=== PATIENT | male | born 1950 | race Caucasian/White ===

== ENCOUNTER → 2017-12-18 | Outpatient (CLI) | payer MEDICARE ==
[~2017-12-18] MED LIST: AMIO200T42 PO; ATOR20TA9 PO; CLON0.1T PO; DOXA4TAB3 PO; LISI40TA PO; METO25TA91 PO
[2017-12-18 12:02] LABS: INTERNATIONAL NORMALIZED RATIO 1.09 (0.93-1.1); PROTHROMBIN TIME 11.2 Seconds (9.6-11.5)
[2017-12-18 12:06] LABS: ALBUMIN 3.5 g/dL (3.4-5.0); ANION GAP 7 mmol/L (5-15); BASOPHILS # (AUTO) 0.03 x10^3/uL (0-0.1); BASOPHILS % (AUTO) 0 % (0-1); CHLORIDE 112 mmol/L (98-107); EOSINOPHILS # (AUTO) 0.24 x10^3/uL (0-0.4); EOSINOPHILS % (AUTO) 3 % (1-7); LYMPHOCYTES # (AUTO) 1.06 x10^3/uL (1-3.4); LYMPHOCYTES % (AUTO) 11 % (22-44); MD NO; MEAN CORPUSCULAR HEMOGLOBIN 29.7 pg (27.5-34.5); MEAN CORPUSCULAR HGB CONC 33.2 g/dL (33.2-36.2); MEAN CORPUSCULAR VOLUME 89.7 fL (81-97); MEAN PLATELET VOLUME 8.4 fL (7.4-10.4); MONOCYTES # (AUTO) 0.68 x10^3/uL (0.2-0.8); MONOCYTES % (AUTO) 7 % (2-9); NEUTROPHILS # (AUTO) 7.37 x10^3/uL (1.8-6.8); NEUTROPHILS % (AUTO) 79 % (42-75); PLATELET COUNT 203 x10^3/uL (130-400); RED BLOOD COUNT 4.92 x10^6/uL (4.38-5.82); RED CELL DISTRIBUTION WIDTH 14.1 % (9.4-14.8)
[2017-12-18 12:11] LABS: ALANINE AMINOTRANSFERASE 24 U/L (12-78); ALKALINE PHOSPHATASE 65 U/L (45-117); BILIRUBIN,TOTAL 1.4 mg/dL (0.2-1.0); CALCIUM 10.2 mg/dL (8.5-10.1); CREATININE 1.26 mg/dL (0.7-1.3); TOTAL PROTEIN 6.7 g/dL (6.4-8.2)
== END | disposition home or self-care (01) ==
LOC: STAR 10:59
PROVIDERS: ATTEND Internal Medicine Cardiovascular Disease
DX: Z01.818 Encounter for other preprocedural examination (principal)
CPT/HCPCS: 36415; 71046; 80053; 85025; 85610; 85730

== ENCOUNTER 2017-12-31 08:43 | Observation (INO) | payer MEDICARE ==
[2017-12-18 11:44] VITALS: BP 186/105
[~2017-12-31] VITALS: Ht 175.3 cm; Wt 110.1 kg
[2017-12-31] MEDS ORDERED: SODIUM CHLORIDE 0.9% 1,000 ML IV SCH (09:02)
[2017-12-31] MEDS ORDERED: SUCCINYLCHOLINE 20 MG/ML, 10ML ONE (10:27)
[2017-12-31] MEDS ORDERED: PROPOFOL 10 MG/ML, 20ML ONE (10:27)
[2017-12-31] MEDS ORDERED: ROCURONIUM 10 MG/ML,10ML ONE (10:27)
[2017-12-31] MEDS ORDERED: DEXAMETHASONE 4 MG/ML, 1ML ONE (10:27)
[2017-12-31] MEDS ORDERED: FENTANYL PF 250 MCG/5ML ONE (11:40)
[2017-12-31] MEDS ORDERED: MIDAZOLAM 1 MG/ML, 2ML ONE (11:40)
[2017-12-31] MEDS ORDERED: LIDOCAINE/PF 1%, 30ML ONE (11:57)
[2017-12-31] MEDS ORDERED: PROTAMINE SULFATE 10 MG/ML, 5ML ONE (11:57)
[2017-12-31] MEDS ORDERED: HEPARIN 1,000 UNITS/ML, 10ML ONE (11:58)
[2017-12-31] MEDS ORDERED: ACETAMINOPHEN 325 MG TABLET PO PRN ×2 (14:00→14:30)
[2017-12-31] MEDS ORDERED: ZOLPIDEM 5MG TABLET PO PRN (14:00)
[2017-12-31] MEDS ORDERED: MIDAZOLAM 1 MG/ML, 2ML IV PRN (14:30)
[2017-12-31] MEDS ORDERED: ONDANSETRON ODT 8 MG PO PRN (14:30)
[2017-12-31] MEDS ORDERED: LABETALOL 5MG/ML, 20ML IV PRN (14:30)
[2017-12-31] MEDS ORDERED: PROMETHAZINE 12.5 MG SUPP PR PRN (14:30)
[2017-12-31] MEDS ORDERED: OXYcodone 5 MG/5 ML ORAL.SOL UDC PO PRN (14:30)
[2017-12-31] MEDS ORDERED: PROMETHAZINE 25 MG/ML, 1ML IV PRN (14:30)
[2017-12-31] MEDS ORDERED: EPHEDRINE 50 MG/ML, 1ML IVPush PRN (14:30)
[2017-12-31] MEDS ORDERED: MORPHINE SULFATE 4 MG/ML, 1ML IVPush PRN (14:30)
[2017-12-31] MEDS ORDERED: LORazepam 2 MG/ML, 1ML IVPush PRN (14:30)
[2017-12-31] MEDS ORDERED: APIXABAN 5 MG TABLET ONE (14:36)
[2017-12-31] MEDS: APIXABAN 5 MG TABLET PO SCH (14:37)
[2017-12-31] MEDS ORDERED: FENTANYL PF 100 MCG/2ML ONE (14:42)
[2017-12-31] MEDS ORDERED: OXYcodone 5 MG/5 ML ORAL.SOL UDC ONE (14:42)
[2017-12-31] MEDS ORDERED: ACETAMINOPHEN 650 MG/20.3 ML UDC ONE (14:42)
[2017-12-31] MEDS: FENTANYL PF 100 MCG/2ML IV PRN ×3 (14:55→15:18)
[2017-12-31] MEDS ORDERED: hydrALAzine 20 MG/ML, 1ML ONE (15:14)
[2017-12-31] MEDS ORDERED: MORPHINE SULFATE 4 MG/ML, 1ML ONE (15:19)
[2017-12-31] MEDS ORDERED: hydrALAzine 20 MG/ML, 1ML IV PRN (15:30)
[2017-12-31 16:26] VITALS: BP 142/78
[2017-12-31 18:35] VITALS: BP 135/78
[2017-12-31] MEDS ORDERED: METOPROLOL SUCCINATE 25 MG TAB.ER.24H PO SCH (21:00)
[2017-12-31 21:13] VITALS: BP 152/74
[2017-12-31 22:00] VITALS: BP 141/81
[2017-12-31] MEDS: ATORVASTATIN 20 MG TABLET PO SCH ×2 (22:00→23:02)
[2017-12-31] MEDS ORDERED: METO25TA35 PO (22:10)
[2017-12-31 22:36] VITALS: BP 145/70
[2017-12-31] MEDS ORDERED: METOPROLOL TARTRATE 25 MG TABLET ONE (23:06)
[2017-12-31] MEDS: METOPROLOL TARTRATE 25 MG TABLET PO SCH (23:10)
[2018-01-01 02:02] VITALS: BP 149/78
[2018-01-01] MEDS: METOPROLOL TARTRATE 25 MG TABLET PO SCH (06:46)
[2018-01-01 08:14] VITALS: BP 158/76
[2018-01-01] MEDS: APIXABAN 5 MG TABLET PO SCH (08:18)
[2018-01-01] MEDS ORDERED: APIX5TAB PO (08:36)
[2018-01-01] MEDS ORDERED: AMIODARONE 200 MG TABLET PO SCH (09:00)
[2018-01-01] MEDS ORDERED: TEMPLATE NON-FORMULARY MED. (Doxazosin Mesylate** 4 MG) PO SCH (09:00)
[2018-01-01] MEDS ORDERED: LISINOPRIL 20 MG TABLET PO SCH (09:00)
== END 2018-01-01 10:41 | disposition home or self-care (01) ==
LOC: CACL 08:43 → ORIP 13:48 → 5SO 16:23 → DCLOUNGE 01-01 10:31
PROVIDERS: ADMIT Internal Medicine Cardiovascular Disease; ATTEND Internal Medicine Cardiovascular Disease
DX: I48.91 Unspecified atrial fibrillation (principal); I48.92 Unspecified atrial flutter; I10 Essential (primary) hypertension
CPT/HCPCS: 85347; 93613; 93655; 93656; 93662; C1730; C1731; C1732; C1759; C1766; C1893; C1894; G0378; J0330; J1100; J1644; J2250; J2704; J2720; J3010; J3490

== ENCOUNTER 2018-02-12 09:33 | Day surgery (SDC) | payer MEDICARE ==
[~2018-02-12] VITALS: Ht 175.3 cm; Wt 101.0 kg
[~2018-02-12 09:33] MED LIST changes: +APIX5TAB PO; +METO25TA35 PO
[2018-02-12] MEDS ORDERED: SODIUM CHLORIDE 0.9% 500 ML IV PRN (10:31)
[2018-02-12 10:39] VITALS: BP 174/104
[2018-02-12] MEDS ORDERED: PROPOFOL 10 MG/ML, 20ML ONE (11:03)
== END 2018-02-12 13:24 ==
LOC: CACL 09:33
PROVIDERS: ATTEND Internal Medicine Cardiovascular Disease
DX: I48.91 Unspecified atrial fibrillation (principal); I10 Essential (primary) hypertension; E78.5 Hyperlipidemia, unspecified
CPT/HCPCS: 92960; 93312; 93325; J2704